=== PATIENT | female | born 1950 | race Two or more races ===

== ENCOUNTER 2022-09-21 11:44 | Outpatient (CLI) | payer MEDICARE, OTHER | END 2022-09-21 23:59 | disposition home or self-care (01) | LOC: MSC 11:44 | PROVIDERS: ATTEND Anesthesiology | DX: M51.26 Other intervertebral disc displacement, lumbar region (principal); M47.817 Spondylosis without myelopathy or radiculopathy, lumbosacral region; M62.830 Muscle spasm of back; M50.20 Other cervical disc displacement, unspecified cervical region; G89.4 Chronic pain syndrome; M25.562 Pain in left knee; M25.561 Pain in right knee ==

== ENCOUNTER 2022-10-08 09:48 | Outpatient (CLI) | payer MEDICARE, OTHER | END 2022-10-08 23:59 | disposition home or self-care (01) | LOC: LAB 09:48 | PROVIDERS: ATTEND Anesthesiology | DX: Z01.812 Encounter for preprocedural laboratory examination (principal); Z20.822 Contact with and (suspected) exposure to COVID-19 | CPT/HCPCS: U0003; C9803 ==

== ENCOUNTER 2022-10-12 08:05 | Day surgery (SDC) | payer MEDICARE, OTHER ==
[2022-10-12] MEDS ORDERED: ANESTHESIA TRAY IN PYXIS 1 EA TRAY MC ONE (08:21)
[2022-10-12] MEDS ORDERED: IOHEXOL 50 ML IV ONE (08:21)
[2022-10-12] MEDS ORDERED: BUPIVACAINE 0.25% 75 MG/30 ML VIAL ONE (08:21)
[2022-10-12] MEDS ORDERED: LIDOCAINE 1% INJ 50 ML MDV IJ ONE (08:22)
[2022-10-12] MEDS ORDERED: methylPREDNISolone ACETATE 80 MG/ML VIAL ONE (08:22)
== END 2022-10-12 11:15 | disposition home or self-care (01) ==
LOC: DS 08:05
PROVIDERS: ATTEND Anesthesiology
DX: M54.50 Low back pain, unspecified (principal); M47.817 Spondylosis without myelopathy or radiculopathy, lumbosacral region; I10 Essential (primary) hypertension; G89.4 Chronic pain syndrome; Z98.890 Other specified postprocedural states; Z79.899 Other long term (current) drug therapy
CPT/HCPCS: 64493; 72020; 64494; 64495; J1040; J2704; J3490 ×3; J1885; J7030; Q9967

== ENCOUNTER 2022-12-07 10:00 | Outpatient (CLI) | payer MEDICARE, OTHER | END 2022-12-07 23:59 | disposition home or self-care (01) | LOC: MSC 10:00 | PROVIDERS: ATTEND Anesthesiology | DX: M51.26 Other intervertebral disc displacement, lumbar region (principal); M47.817 Spondylosis without myelopathy or radiculopathy, lumbosacral region; M50.20 Other cervical disc displacement, unspecified cervical region; M62.830 Muscle spasm of back; G89.4 Chronic pain syndrome; M25.562 Pain in left knee; M25.561 Pain in right knee; Z79.1 Long term (current) use of non-steroidal anti-inflammatories (NSAID) ==

== ENCOUNTER 2023-01-03 10:24 | Outpatient (CLI) | payer MEDICARE, OTHER | END 2023-01-03 23:59 | disposition home or self-care (01) | LOC: LAB 10:24 | PROVIDERS: ATTEND Anesthesiology | DX: Z01.812 Encounter for preprocedural laboratory examination (principal); Z20.822 Contact with and (suspected) exposure to COVID-19 | CPT/HCPCS: U0003; C9803 ==

== ENCOUNTER 2023-01-07 07:51 | Day surgery (SDC) | payer MEDICARE, OTHER ==
[2023-01-07] MEDS ORDERED: PROPOFOL 20 ML IV ONE (08:32)
[2023-01-07] MEDS ORDERED: IOHEXOL 50 ML IV ONE (08:48)
[2023-01-07] MEDS ORDERED: DEXAMETHASONE SOD PHOSPHATE 10 MG/ML VIAL ONE (08:48)
[2023-01-07] MEDS ORDERED: LIDOCAINE HCL/MPF 1% 30 ML VIAL IJ ONE (08:48)
[2023-01-07] MEDS ORDERED: BUPIVACAINE 0.25% 75 MG/30 ML VIAL ONE (08:48)
[2023-01-07] MEDS ORDERED: LIDOCAINE HCL/PF 2 % 5ML SDV 5 ML VIAL ONE (08:51)
== END 2023-01-07 10:05 | disposition home or self-care (01) ==
LOC: DS 07:51
PROVIDERS: ATTEND Anesthesiology
DX: M54.50 Low back pain, unspecified (principal); M47.817 Spondylosis without myelopathy or radiculopathy, lumbosacral region; M51.37 Other intervertebral disc degeneration, lumbosacral region; I10 Essential (primary) hypertension; E11.9 Type 2 diabetes mellitus without complications; F32.9 Major depressive disorder, single episode, unspecified; G89.29 Other chronic pain; Z98.890 Other specified postprocedural states; Z79.899 Other long term (current) drug therapy
CPT/HCPCS: 64493; 72020; 82962; 64495; 64494; J1100; J2704; J3490 ×3; J7030; Q9967

== ENCOUNTER 2023-06-09 09:06 | Inpatient (IN) | payer MEDICARE, OTHER ==
[~2023-06-09] VITALS: Ht 154.9 cm; Wt 75.3 kg
[~2023-06-09 09:06] MED LIST: ANESTHESIA TRAY IN PYXIS 1 EA TRAY MC ONE
[2023-06-09] MEDS ORDERED: dexaMETHasone SOD PHOSPHATE 10 MG/ML VIAL ONE (11:24)
[2023-06-09] MEDS ORDERED: VANCOMYCIN 1 GM VIAL ONE (11:24)
[2023-06-09] MEDS ORDERED: LIDOCAINE 2%-EPI 1:100,000 30 ML VIAL ONE (11:24)
[2023-06-09] MEDS ORDERED: Magnesium 1 GM/2 ML VIAL ONE (11:43)
[2023-06-09] MEDS ORDERED: OXYMETAZOLINE HCL NASAL SPRAY 30 ML BOTTLE NS ONE (11:43)
[2023-06-09] MEDS ORDERED: FENTANYL PF 100MCG/2ML AMPUL ONE (11:43)
[2023-06-09] MEDS ORDERED: FAMOTIDINE/PF INJ 20 MG/2 ML VIAL IV ONE (11:44)
[2023-06-09] MEDS ORDERED: ROCURONIUM BROMIDE 50 MG/5 ML ONE (11:44)
[2023-06-09] MEDS ORDERED: ALBUTEROL SULFATE 8 GM HFA.AER.AD ONE (12:13)
[2023-06-09] MEDS ORDERED: GELATIN SPONGE,ABSORBABLE 1 SPONGE SPONGE TP ONE (12:13)
[2023-06-09] MEDS ORDERED: SEVOFLURANE 250 ML BOTTLE IH ONE (12:39)
[2023-06-09] MEDS ORDERED: CELLULOSE,OXIDIZED 1 PKT EACH MC ONE ×5 (14:20→21:00)
[2023-06-09] MEDS ORDERED: *INSULIN REGULAR(HUMULIN R)HUM 100 UNIT/ML VIAL SQ PRN (15:00)
[2023-06-09] MEDS ORDERED: DEXTROSE 50%-WATER 50 ML DISP.SYRIN IV PRN (15:00)
[2023-06-09] MEDS ORDERED: INSULIN REGULAR, HUMAN 100 UNIT/ML 3 ML VIAL SQ PRN (15:00)
[2023-06-09] MEDS ORDERED: ONDANSETRON HCL/PF 4 MG/2 ML VIAL IV PRN (15:30)
[2023-06-09] MEDS: HYDROMORPHONE 1 MG/1 ML DISP.SYRIN IV PRN ×2 (15:48→22:06)
[2023-06-09] MEDS ORDERED: CELLULOSE,OXIDIZED 1 EACH EACH MC ONE (17:00)
[2023-06-09 17:30] LABS: BASOPHILS % (AUTO) 0.6 % (0.0-2.0); EOSINOPHILS # (AUTO) 0.2 K/uL (0.0-0.7); EOSINOPHILS % (AUTO) 2.3 % (0.0-6.0); HEMATOCRIT 35 % (33-45); LYMPHOCYTES # (AUTO) 0.7 K/uL (0.8-4.8); LYMPHOCYTES % (AUTO) 10.4 % (20.0-44.0); MEAN CORPUSCULAR HEMOGLOBIN 27 PG (26.0-33.0); MEAN CORPUSCULAR HGB CONC 32 g/dl (31.0-36.0); MEAN CORPUSCULAR VOLUME 85 fL (82-100); MONOCYTES # (AUTO) 0.1 K/uL (0.1-1.30); MONOCYTES % (AUTO) 1.4 % (2.0-12.0); NEUTROPHILS # (AUTO) 5.9 K/uL (1.8-8.9); NEUTROPHILS % (AUTO) 85.3 % (43.0-81.0); PLATELET COUNT (AUTO) 237 K/uL (150-450); RED BLOOD CELL COUNT(AUTO) 4.07 MIL/uL (4.0-5.2); RED CELL DISTRIBUTION WIDTH 14.6 % (11.5-15.0); WHITE BLOOD COUNT (AUTO) 6.9 K/uL (4.3-11.0)
[2023-06-09] MEDS ORDERED: MIDAZOLAM HCL 2 MG/2ML VIAL IV ONE (17:30)
[2023-06-09 17:43] LABS: CALCIUM, SERUM 8.6 mg/dL (8.5-10.1); CREATININE 0.8 mg/dL (0.6-1.3); POTASSIUM 4.9 mmol/L (3.5-5.1)
[2023-06-09] MEDS: BLOOD SUGAR DIAGNOSTIC 1 EACH STRIP VI SCH ×2 (17:57→22:20)
[2023-06-09 17:58] VITALS: BP 132/56; O2SAT 98
[2023-06-09 19:00] VITALS: BP 116/60; O2SAT 98
[2023-06-09 20:00] VITALS: BP 131/58; O2SAT 99
[2023-06-09 21:00] VITALS: BP 132/86; O2SAT 99
[2023-06-09] MEDS: BENAZEPRIL HCL 20 MG TABLET PO SCH (21:32)
[2023-06-09 22:00] VITALS: BP 129/54; O2SAT 91
[2023-06-09 23:00] VITALS: BP 101/78; O2SAT 99
[2023-06-09] MEDS ORDERED: IV NS 0.9% 250 ML IV PRN (23:00)
[2023-06-10] VITALS (11 sets, daily range): BP systolic 99–138; BP diastolic 45–68; TEMP 97.6–98.8; O2SAT 94–100
[2023-06-10] MEDS ORDERED: VANCOMYCIN 1 GM in IV D5W 250ml IV SCH ×2
[2023-06-10] MEDS: BLOOD SUGAR DIAGNOSTIC 1 EACH STRIP VI SCH (08:04)
[2023-06-10] MEDS: BENAZEPRIL HCL 20 MG TABLET PO SCH (08:09)
[2023-06-10 08:16] LABS: BASOPHILS % (AUTO) 0.4 % (0.0-2.0); EOSINOPHILS % (AUTO) 0.5 % (0.0-6.0); HEMATOCRIT 31 % (33-45); HEMOGLOBIN 10.2 g/dL (11.5-14.8); LYMPHOCYTES # (AUTO) 1.5 K/uL (0.8-4.8); LYMPHOCYTES % (AUTO) 16.8 % (20.0-44.0); MEAN CORPUSCULAR HEMOGLOBIN 27 PG (26.0-33.0); MEAN CORPUSCULAR HGB CONC 32 g/dl (31.0-36.0); MEAN CORPUSCULAR VOLUME 84 fL (82-100); MONOCYTES # (AUTO) 0.8 K/uL (0.1-1.30); MONOCYTES % (AUTO) 8.8 % (2.0-12.0); NEUTROPHILS # (AUTO) 6.5 K/uL (1.8-8.9); NEUTROPHILS % (AUTO) 73.5 % (43.0-81.0); PLATELET COUNT (AUTO) 253 K/uL (150-450); RED BLOOD CELL COUNT(AUTO) 3.75 MIL/uL (4.0-5.2); RED CELL DISTRIBUTION WIDTH 14.3 % (11.5-15.0); WHITE BLOOD COUNT (AUTO) 8.8 K/uL (4.3-11.0)
== END 2023-06-10 11:02 | disposition home or self-care (01) | DRG 516 ==
LOC: DS 09:06 → MED 09:19 → ICU 16:25
PROVIDERS: ADMIT Internal Medicine; ATTEND Internal Medicine
PROC: 0NBR0ZX Excision of Maxilla, Open Approach, Diagnostic (ICD-10-PCS; principal; 2023-06-09)
PROC: 0NSR04Z Reposition Maxilla with Internal Fixation Device, Open Approach (ICD-10-PCS; 2023-06-09)
PROC: 0NUR07Z Supplement Maxilla with Autologous Tissue Substitute, Open Approach (ICD-10-PCS; 2023-06-09)
DX: M84.48XA Pathological fracture, other site, initial encounter for fracture (principal); D62 Acute posthemorrhagic anemia; M87.88 Other osteonecrosis, other site; D48.1 Neoplasm of uncertain behavior of connective and other soft tissue; I10 Essential (primary) hypertension; K21.9 Gastro-esophageal reflux disease without esophagitis; E66.9 Obesity, unspecified; E11.9 Type 2 diabetes mellitus without complications; R04.0 Epistaxis; Z68.31 Body mass index [BMI] 31.0-31.9, adult; M27.40 Unspecified cyst of jaw; M27.2 Inflammatory conditions of jaws; D16.4 Benign neoplasm of bones of skull and face
CPT/HCPCS: 36415; 80048-TC; 82962-TC; 85025-TC; 86850-TC; 87081-TC; 88305-TC; 88311-TC; 88312-TC; 93307-TC; A4223; A6403; C1713; G0378; J1100; J1170; J1815; J2370; J2405; J2704; J2765; J3010; J3370; J3475; J3490; J7030; J7050; J7060

== ENCOUNTER 2023-12-22 10:03 | Inpatient (IN) | payer MEDICARE, OTHER ==
[~2023-12-22] VITALS: Ht 160 cm; Wt 79.0 kg
[2023-12-22 10:30] VITALS: BP 136/68; TEMP 98.1; O2SAT 98
[2023-12-22] MEDS ORDERED: dexaMETHasone SOD PHOSPHATE 1 ML ONE (12:29)
[2023-12-22] MEDS ORDERED: LIDOCAINE 2%-EPI 1:100,000 30 ML VIAL ONE (12:29)
[2023-12-22] MEDS ORDERED: VANCOMYCIN 1 GM VIAL ONE (12:30)
[2023-12-22] MEDS ORDERED: FENTANYL PF 100MCG/2ML AMPUL ONE (12:46)
[2023-12-22] MEDS ORDERED: MIDAZOLAM HCL 2 MG/2ML VIAL ONE (12:46)
[2023-12-22] MEDS ORDERED: ROCURONIUM BROMIDE 50 MG/5 ML ONE (12:47)
[2023-12-22] MEDS ORDERED: FAMOTIDINE/PF INJ 20 MG/2 ML VIAL IV ONE (12:47)
[2023-12-22] MEDS ORDERED: FERR325T23 PO (12:49)
[2023-12-22] MEDS ORDERED: ESCI10TA PO (12:49)
[2023-12-22] MEDS ORDERED: METH500T6 PO (12:49)
[2023-12-22] MEDS ORDERED: METF-881 PO (12:49)
[2023-12-22] MEDS ORDERED: BUPR-319 PO (12:49)
[2023-12-22] MEDS ORDERED: OMEP20CA15 PO (12:49)
[2023-12-22] MEDS ORDERED: CELE100C PO (12:49)
[2023-12-22] MEDS ORDERED: TRAZ-182 PO (12:49)
[2023-12-22] MEDS ORDERED: VENL37.581 PO (12:49)
[2023-12-22] MEDS ORDERED: BENA1TAB18 PO (12:49)
[2023-12-22] MEDS ORDERED: ATOR80TA PO (12:49)
[2023-12-22] MEDS ORDERED: SEVOFLURANE 250 ML BOTTLE IH ONE (13:35)
[2023-12-22 15:30] VITALS: BP 142/64; TEMP 97.5; O2SAT 95
[2023-12-22] MEDS ORDERED: ACETAMINOPHEN 325 MG TABLET PO PRN (15:30)
[2023-12-22] MEDS: IV NS 0.9% 1,000 ML IV PRN (15:37)
[2023-12-22 15:45] VITALS: BP 141/68; TEMP 97.5; O2SAT 95
[2023-12-22 15:53] VITALS: BP 147/64; TEMP 97.5; O2SAT 95
[2023-12-22 16:00] VITALS: BP 145/72; TEMP 97.6; O2SAT 96
[2023-12-22] MEDS ORDERED: HYDROMORPHONE 1 MG/1 ML DISP.SYRIN IV PRN (16:00)
[2023-12-22] MEDS ORDERED: ONDANSETRON HCL/PF 4 MG/2 ML VIAL IV PRN (16:00)
[2023-12-23] MEDS ORDERED: VANCOMYCIN 1 GM in IV D5W 250ml IV SCH (01:00)
== END 2023-12-22 18:40 | disposition left against medical advice (07) | DRG 496 ==
LOC: DS 10:03 → MED 10:06
PROVIDERS: ADMIT Dentist Oral and Maxillofacial Surgery; ATTEND Dentist Oral and Maxillofacial Surgery
PROC: 0NBR0ZZ Excision of Maxilla, Open Approach (ICD-10-PCS; principal; 2023-12-22)
PROC: 0NPW04Z Removal of Internal Fixation Device from Facial Bone, Open Approach (ICD-10-PCS; principal; 2023-12-22)
PROC: 0WB30ZX Excision of Oral Cavity and Throat, Open Approach, Diagnostic (ICD-10-PCS; principal; 2023-12-22)
DX: T84.69XA Infection and inflammatory reaction due to internal fixation device of other site, initial encounter (principal); T81.83XA Persistent postprocedural fistula, initial encounter; Y83.8 Other surgical procedures as the cause of abnormal reaction of the patient, or of later complication, without mention of misadventure at the time of the procedure; Y92.009 Unspecified place in unspecified non-institutional (private) residence as the place of occurrence of the external cause; J32.0 Chronic maxillary sinusitis; K13.70 Unspecified lesions of oral mucosa; I25.10 Atherosclerotic heart disease of native coronary artery without angina pectoris; Z79.84 Long term (current) use of oral hypoglycemic drugs; I10 Essential (primary) hypertension; E78.5 Hyperlipidemia, unspecified; Z79.899 Other long term (current) drug therapy; E11.9 Type 2 diabetes mellitus without complications
CPT/HCPCS: 82962-TC; 87081-TC; A4223; G0378; J1100; J2250; J2405; J2704; J2765; J3010; J3370; J3490; J7030; J7060